=== PATIENT | female | born 1960 | race Two or more races ===

== ENCOUNTER 2019-07-04 16:19 | Emergency (ER) | payer OTHER ==
[~2019-07-04] VITALS: Ht 160 cm; Wt 72.1 kg
[2019-07-04 16:49] VITALS: BP 121/66
== END 2019-07-04 17:36 | disposition home or self-care (01) ==
LOC: ER 16:19
DX: L23.9 Allergic contact dermatitis, unspecified cause (principal); Z88.8 Allergy status to other drugs, medicaments and biological substances

== ENCOUNTER 2022-06-14 13:26 | Inpatient (IN) | payer MEDICAID, OTHER ==
[~2022-06-14] VITALS: Ht 160 cm; Wt 71.8 kg
[2022-06-14] MEDS ORDERED: ONDANSETRON HCL 4 MG/2 ML VIAL IV ONE (14:00)
[2022-06-14] MEDS ORDERED: MORPHINE SULFATE 4 MG/ML SYR/VIAL IV ONE (14:00)
[2022-06-14 14:18] LABS: Basophils # (auto) 0 10 ^3/uL (0-0.2); Eosinophils # (auto) 0 10 ^3/uL (0-0.8); Eosinophils % (auto) 1.2 % (0.0-7.0); Hematocrit 43.3 % (36.0-46.0); Lymphocytes # (auto) 1.2 10 ^3/uL (0.4-5.4); Lymphocytes % (auto) 28.4 % (10.0-50.0); Mean Corpuscular Hgb Conc. 32.4 g/dL (32.0-36.0); Mean Corpuscular Volume 83.2 fL (80.0-100.0); Monocytes # (auto) 0.3 10 ^3/uL (0-1.3); Monocytes % (auto) 8.2 % (0.0-12.0); Neutrophils # (auto) 2.5 10 ^3/uL (1.6-8.6); Neutrophils % (auto) 61.2 % (37.0-80.0); Nucleated Red Blood Cells % 0.3 %; Red Cell Distribution Width 13.9 % (11.8-14.3); White Blood Cell 4.1 10^3/uL (4.4-10.8)
[2022-06-14 14:37] LABS: Albumin 3.4 g/dL (3.4-5.0); Calcium 9.5 mg/dL (8.5-10.1); Magnesium 1.9 mg/dL (1.6-2.6); Potassium 3.5 mmol/L (3.5-5.1)
[2022-06-14 14:40] LABS: BUN/Creatinine Ratio 24.5; Bilirubin, Total 0.4 mg/dL (0.2-1.0); Total Protein 7.6 g/dL (6.4-8.2)
[2022-06-14 14:44] LABS: Urine Bacteria FEW /hpf (None Seen); Urine Blood Negative /uL (Negative); Urine Mucus FEW (None Seen); Urine Specific Gravity 1.034 (1.001-1.035); Urine WBC 2 /hpf (0 - 5)
[2022-06-14] MEDS ORDERED: ACETAMINOPHEN 325 MG TAB PO PRN (21:00)
[2022-06-14] MEDS ORDERED: NITROGLYCERIN 0.4 MG SL TAB SL PRN (21:00)
[2022-06-14] MEDS ORDERED: DEXTROSE (50%) 50ML SYRG IV PRN (21:00)
[2022-06-14] MEDS ORDERED: TEMAZEPAM 15 MG CAP PO PRN (21:00)
[2022-06-14] MEDS ORDERED: ONDANSETRON HCL 4 MG/2 ML VIAL IV PRN (21:00)
[2022-06-14] MEDS: ACCU-CHEK COMFORT CURVE STRIP VI SCH (22:30)
[2022-06-14] MEDS: InsuLIN REG 1unit/0.01ml Soln (100units/ml) SC SCH (22:35)
[2022-06-15] MEDS: HYDROcodone-ACET 5/325MG TAB PO PRN ×3 (00:12→14:46)
[2022-06-15] MEDS ORDERED: IOHEXOL 350 MG/ML 100ML IJ ONE (03:11)
[2022-06-15 06:01] LABS: Basophils # (auto) 0 10 ^3/uL (0-0.2); Basophils % (auto) 0.8 % (0.0-2.0); Eosinophils # (auto) 0.1 10 ^3/uL (0-0.8); Eosinophils % (auto) 1.9 % (0.0-7.0); Hematocrit 39.4 % (36.0-46.0); Hemoglobin 12.8 g/dL (12.2-16.2); Lymphocytes # (auto) 1.1 10 ^3/uL (0.4-5.4); Lymphocytes % (auto) 28.9 % (10.0-50.0); Mean Corpuscular Hemoglobin 27.1 pg (28.0-32.0); Mean Corpuscular Hgb Conc. 32.4 g/dL (32.0-36.0); Mean Corpuscular Volume 83.7 fL (80.0-100.0); Monocytes # (auto) 0.4 10 ^3/uL (0-1.3); Monocytes % (auto) 11.3 % (0.0-12.0); Neutrophils # (auto) 2.1 10 ^3/uL (1.6-8.6); Neutrophils % (auto) 57.1 % (37.0-80.0); Nucleated Red Blood Cells % 0.1 %; Red Blood Cells 4.71 10^6/uL (4.0-5.20); White Blood Cell 3.7 10^3/uL (4.4-10.8)
[2022-06-15 06:18] LABS: Anion Gap 8 (5-15); Blood Urea Nitrogen 13 mg/dL (7-18); Calcium 8.7 mg/dL (8.5-10.1); Carbon Dioxide 27 mmol/L (21-32); Chloride 103 mmol/L (98-107); Glucose 294 mg/dL (74-106); Potassium 3.5 mmol/L (3.5-5.1); Sodium 138 mmol/L (136-145)
[2022-06-15 06:21] LABS: GFR African American 154 mL/min; GFR Non-African American 127 mL/min
[2022-06-15 06:25] LABS: Alanine Aminotransferase 36 U/L (13-56); Alkaline Phosphatase 87 U/L (45-117); Aspartate Aminotransferase 30 U/L (15-37); Bilirubin, Total 0.3 mg/dL (0.2-1.0); Total Protein 6.3 g/dL (6.4-8.2)
[2022-06-15] MEDS: ACCU-CHEK COMFORT CURVE STRIP VI SCH ×4 (07:03→22:07)
[2022-06-15] MEDS: InsuLIN REG 1unit/0.01ml Soln (100units/ml) SC SCH ×4 (07:10→22:05)
[2022-06-15 09:51] VITALS: BP 99/65
[2022-06-15 09:58] VITALS: BP 98/58
[2022-06-15] MEDS ORDERED: ENOXAPARIN SOD 40 MG/0.4 ML SYRINGE SC SCH (10:00)
[2022-06-15] MEDS ORDERED: PANT40TA2 PO (10:57)
[2022-06-15] MEDS: PANTOPRAZOLE 40 MG TAB PO SCH (11:09)
[2022-06-15 13:00] VITALS: BP 108/59
[2022-06-15] MEDS ORDERED: oxyCODONE ER 10 MG TAB PO ONE (15:00)
[2022-06-15] MEDS ORDERED: POTASSIUM CHL 20 Meq TABLET PO ONE (16:00)
[2022-06-15 16:50] LABS: Cholesterol 173 mg/dL (< 200)
[2022-06-15 16:53] LABS: HDL Cholesterol 31 mg/dL (40-59); LDL Cholesterol 122 mg/dL (< 100); Triglycerides 170 mg/dL (< 150)
[2022-06-15 17:00] VITALS: BP 112/65
[2022-06-15 17:03] LABS: Thyroid Stimulating Hormone 4.89 uIU/mL (0.358-3.74)
[2022-06-15] MEDS ORDERED: ERGOCALCIFEROL 50,000 UNIT(1.25MG) CAP PO SCH (20:45)
[2022-06-15 22:00] VITALS: BP 97/62
[2022-06-15] MEDS ORDERED: INSULIN LANTUS (GLARGINE) 1 /0.01ml (100units/ml) SC SCH (22:00)
[2022-06-16] VITALS (24 sets, daily range): BP systolic 98–134; BP diastolic 46–93
[2022-06-16 06:32] LABS: INR 0.95 (0.9-1.15); Partial Thromboplastin Time 27.3 sec (24.6-33.4)
[2022-06-16] MEDS: InsuLIN REG 1unit/0.01ml Soln (100units/ml) SC SCH ×4 (06:47→22:08)
[2022-06-16] MEDS: ACCU-CHEK COMFORT CURVE STRIP VI SCH ×4 (06:49→22:10)
[2022-06-16] MEDS: PANTOPRAZOLE 40 MG TAB PO SCH (08:29)
[2022-06-16] MEDS: INSULIN LANTUS (GLARGINE) 1 /0.01ml (100units/ml) SC SCH ×2 (08:29→22:20)
[2022-06-16] MEDS ORDERED: LIDOCAINE 2%HCL (LOCAL ANESTH.) INJ 10ml MDV ONE (09:41)
[2022-06-16] MEDS ORDERED: MIDAZOLAM HCL 2MG/2ML 2ml VIAL (1mg/ml) IV ONE (10:00)
[2022-06-16] MEDS ORDERED: fentaNYL CITRATE 100 MCG/2 ML VL IV ONE (10:00)
[2022-06-16] MEDS: HYDROcodone-ACET 5/325MG TAB PO PRN (18:21)
[2022-06-17] VITALS (7 sets, daily range): BP systolic 102–132; BP diastolic 56–78
[2022-06-17] MEDS: HYDROcodone-ACET 5/325MG TAB PO PRN ×2 (04:29→21:13)
[2022-06-17 05:27] LABS: Basophils # (auto) 0 10 ^3/uL (0-0.2); Basophils % (auto) 0.8 % (0.0-2.0); Eosinophils # (auto) 0.1 10 ^3/uL (0-0.8); Eosinophils % (auto) 1.4 % (0.0-7.0); Hemoglobin 13.3 g/dL (12.2-16.2); Lymphocytes # (auto) 1.1 10 ^3/uL (0.4-5.4); Lymphocytes % (auto) 27.2 % (10.0-50.0); Mean Corpuscular Hgb Conc. 32.5 g/dL (32.0-36.0); Monocytes # (auto) 0.4 10 ^3/uL (0-1.3); Monocytes % (auto) 10.8 % (0.0-12.0); Neutrophils # (auto) 2.4 10 ^3/uL (1.6-8.6); Neutrophils % (auto) 59.8 % (37.0-80.0); Red Blood Cells 4.93 10^6/uL (4.0-5.20); White Blood Cell 4.1 10^3/uL (4.4-10.8)
[2022-06-17 05:45] LABS: BUN/Creatinine Ratio 35.7; Calcium 9.1 mg/dL (8.5-10.1); Potassium 3.5 mmol/L (3.5-5.1)
[2022-06-17] MEDS: InsuLIN REG 1unit/0.01ml Soln (100units/ml) SC SCH ×4 (06:35→22:14)
[2022-06-17] MEDS: ACCU-CHEK COMFORT CURVE STRIP VI SCH ×4 (06:36→22:24)
[2022-06-17] MEDS: PANTOPRAZOLE 40 MG TAB PO SCH (07:49)
[2022-06-17] MEDS: INSULIN LANTUS (GLARGINE) 1 /0.01ml (100units/ml) SC SCH ×2 (07:50→22:14)
[2022-06-17] MEDS: IPRATROPIUM BROM 0.5 MG/2.5ML INH SOL NEB PRN ×2 (10:20→21:02)
[2022-06-17] MEDS: ALBUTEROL SULF 2.5 MG/0.5ML(0.5%) NEB SOLN NEB PRN ×2 (10:20→21:02)
[2022-06-18 05:00] VITALS: BP 109/71
[2022-06-18] MEDS: ACCU-CHEK COMFORT CURVE STRIP VI SCH ×4 (06:38→21:26)
[2022-06-18] MEDS: InsuLIN REG 1unit/0.01ml Soln (100units/ml) SC SCH ×4 (06:41→21:26)
[2022-06-18 09:00] VITALS: BP 124/79
[2022-06-18] MEDS: INSULIN LANTUS (GLARGINE) 1 /0.01ml (100units/ml) SC SCH ×2 (10:34→21:25)
[2022-06-18 13:00] VITALS: BP 120/70
[2022-06-18] MEDS ORDERED: ERGO1CAP23 PO (14:48)
[2022-06-18] MEDS ORDERED: INSLANTI SC (14:48)
[2022-06-18] MEDS ORDERED: ALB5IS IN (14:48)
[2022-06-18] MEDS ORDERED: BLOO1KIT60 XX (14:48)
[2022-06-18] MEDS ORDERED: GLIP10TA9 PO (14:51)
[2022-06-18] MEDS: HYDROcodone-ACET 5/325MG TAB PO PRN ×2 (15:16→23:03)
[2022-06-18 16:55] VITALS: BP 127/75
[2022-06-18] MEDS ORDERED: DOCUSATE SOD 100 MG CAP PO PRN (17:30)
[2022-06-18] MEDS: ALBUTEROL SULF 2.5 MG/0.5ML(0.5%) NEB SOLN NEB PRN (18:07)
[2022-06-18] MEDS: IPRATROPIUM BROM 0.5 MG/2.5ML INH SOL NEB PRN (18:07)
[2022-06-18 22:00] VITALS: BP 128/73
[2022-06-19] MEDS ORDERED: PANTOPRAZOLE 40 MG TAB PO SCH (00:15)
[2022-06-19 05:00] VITALS: BP 112/61
[2022-06-19] MEDS: ACCU-CHEK COMFORT CURVE STRIP VI SCH ×4 (06:27→21:28)
[2022-06-19] MEDS: InsuLIN REG 1unit/0.01ml Soln (100units/ml) SC SCH ×4 (06:28→21:32)
[2022-06-19] MEDS: INSULIN LANTUS (GLARGINE) 1 /0.01ml (100units/ml) SC SCH ×2 (08:00→21:32)
[2022-06-19] MEDS: PANTOPRAZOLE 40 MG TAB PO SCH (08:47)
[2022-06-19 09:00] VITALS: BP 106/64
[2022-06-19] MEDS: HYDROcodone-ACET 5/325MG TAB PO PRN ×2 (10:10→18:15)
[2022-06-19] MEDS: IPRATROPIUM BROM 0.5 MG/2.5ML INH SOL NEB PRN (10:21)
[2022-06-19] MEDS: ALBUTEROL SULF 2.5 MG/0.5ML(0.5%) NEB SOLN NEB PRN (10:21)
[2022-06-19 13:00] VITALS: BP 119/55
[2022-06-19 17:00] VITALS: BP 125/92
[2022-06-19] MEDS: MORPHINE SULFATE INJ 2 MG/ml SYRG IV PRN (17:06)
[2022-06-19 22:00] VITALS: BP 117/69
[2022-06-20] VITALS (7 sets, daily range): BP systolic 98–124; BP diastolic 51–78
[2022-06-20] MEDS: MORPHINE SULFATE INJ 2 MG/ml SYRG IV PRN ×3 (01:24→13:55)
[2022-06-20] MEDS: InsuLIN REG 1unit/0.01ml Soln (100units/ml) SC SCH ×3 (06:51→17:12)
[2022-06-20] MEDS: INSULIN LANTUS (GLARGINE) 1 /0.01ml (100units/ml) SC SCH (08:00)
[2022-06-20] MEDS: PANTOPRAZOLE 40 MG TAB PO SCH (09:38)
[2022-06-20] MEDS: ACCU-CHEK COMFORT CURVE STRIP VI SCH ×2 (12:37→17:11)
[2022-06-20] MEDS: ALBUTEROL SULF 2.5 MG/0.5ML(0.5%) NEB SOLN NEB PRN (14:04)
[2022-06-20] MEDS: IPRATROPIUM BROM 0.5 MG/2.5ML INH SOL NEB PRN (14:04)
== END 2022-06-20 17:20 | disposition home or self-care (01) | DRG 136 ==
LOC: ER 13:26 → TELE 20:50 → TELE-EAST 06-15 09:17
PROVIDERS: ADMIT Nurse Practitioner; ATTEND Internal Medicine
PROC: 0BBD3ZX Excision of Right Middle Lung Lobe, Percutaneous Approach, Diagnostic (ICD-10-PCS; principal; 2022-06-16)
PROC: 0W9930Z Drainage of Right Pleural Cavity with Drainage Device, Percutaneous Approach (ICD-10-PCS; 2022-06-16)
DX: C78.00 Secondary malignant neoplasm of unspecified lung (principal); J93.9 Pneumothorax, unspecified; E11.9 Type 2 diabetes mellitus without complications; K80.20 Calculus of gallbladder without cholecystitis without obstruction; Z20.822 Contact with and (suspected) exposure to COVID-19; Z88.8 Allergy status to other drugs, medicaments and biological substances; Z90.710 Acquired absence of both cervix and uterus; Z85.42 Personal history of malignant neoplasm of other parts of uterus; Z92.21 Personal history of antineoplastic chemotherapy; Z92.3 Personal history of irradiation
CPT/HCPCS: 10005; 36415; 71045; 71046; 71250; 71275; 74176; 77012; 80048; 80053; 80061; 81001; 82150; 82306; 82962; 83036; 83615; 83690; 83735; 83880; 84439; 84443; 84484; 85025; 85379; 85610; 85730; 86304; 93005; 93306; 94640; 96374; 96375; A4223; C1729; G0378; J1815; J2001; J2250; J2405

== ENCOUNTER 2022-07-04 15:37 | Inpatient (IN) | payer MEDICAID ==
[~2022-07-04] VITALS: Ht 160 cm; Wt 65.9 kg
[~2022-07-04 15:37] MED LIST: ALB5IS IN; BLOO1KIT60 XX; ERGO1CAP23 PO; GLIP10TA9 PO; INSLANTI SC; PANT40TA2 PO
[2022-07-04] MEDS ORDERED: IOHEXOL 350 MG/ML 100ML IJ ONE ×2 (16:23→20:57)
[2022-07-04 16:53] LABS: Basophils # (auto) 0.1 10 ^3/uL (0-0.2); Basophils % (auto) 1.1 % (0.0-2.0); Eosinophils # (auto) 0.1 10 ^3/uL (0-0.8); Hematocrit 42.9 % (36.0-46.0); Hemoglobin 13.4 g/dL (12.2-16.2); Lymphocytes # (auto) 1.1 10 ^3/uL (0.4-5.4); Lymphocytes % (auto) 22.3 % (10.0-50.0); Mean Corpuscular Hemoglobin 26.5 pg (28.0-32.0); Mean Corpuscular Hgb Conc. 31.3 g/dL (32.0-36.0); Mean Corpuscular Volume 84.5 fL (80.0-100.0); Monocytes # (auto) 0.4 10 ^3/uL (0-1.3); Monocytes % (auto) 7.8 % (0.0-12.0); Neutrophils # (auto) 3.2 10 ^3/uL (1.6-8.6); Neutrophils % (auto) 65.8 % (37.0-80.0); Nucleated Red Blood Cells % 0.1 %; Red Blood Cells 5.08 10^6/uL (4.0-5.20); Red Cell Distribution Width 14.1 % (11.8-14.3); White Blood Cell 4.8 10^3/uL (4.4-10.8)
[2022-07-04 17:08] LABS: Albumin 3.4 g/dL (3.4-5.0); Calcium 9.2 mg/dL (8.5-10.1); Potassium 3.9 mmol/L (3.5-5.1)
[2022-07-04 17:11] LABS: BUN/Creatinine Ratio 20.3
[2022-07-04 17:12] LABS: Bilirubin, Total 0.2 mg/dL (0.2-1.0); Total Protein 7.3 g/dL (6.4-8.2)
[2022-07-04 21:18] LABS: Urine Bacteria FEW /hpf (None Seen); Urine Blood Negative /uL (Negative); Urine Mucus FEW (None Seen); Urine Specific Gravity 1.023 (1.001-1.035); Urine WBC 7 /hpf (0 - 5)
[2022-07-05] MEDS ORDERED: ONDANSETRON HCL 4 MG/2 ML VIAL IV PRN (01:00)
[2022-07-05] MEDS ORDERED: ALBUTEROL SULF 2.5 MG/0.5ML(0.5%) NEB SOLN NEB PRN (01:00)
[2022-07-05] MEDS ORDERED: HYDROcodone-ACET 5/325MG TAB PO ONE (01:00)
[2022-07-05] MEDS ORDERED: TEMAZEPAM 15 MG CAP PO PRN (01:00)
[2022-07-05] MEDS ORDERED: MORPHINE SULFATE INJ 2 MG/ml SYRG IV PRN (01:00)
[2022-07-05] MEDS ORDERED: NITROGLYCERIN 0.4 MG SL TAB SL PRN (01:00)
[2022-07-05] MEDS ORDERED: DEXTROSE (50%) 50ML SYRG IV PRN (01:00)
[2022-07-05] MEDS ORDERED: ACETAMINOPHEN 325 MG TAB PO PRN (01:00)
[2022-07-05 03:10] VITALS: BP 126/76
[2022-07-05] MEDS: HYDROcodone-ACET 5/325MG TAB PO PRN ×2 (05:48→13:36)
[2022-07-05] MEDS: ACCU-CHEK COMFORT CURVE STRIP VI SCH ×3 (05:58→18:00)
[2022-07-05] MEDS: InsuLIN REG 1unit/0.01ml Soln (100units/ml) SC SCH ×3 (05:59→18:00)
[2022-07-05] MEDS ORDERED: PANTOPRAZOLE 40 MG TAB PO SCH (10:00)
[2022-07-05] MEDS ORDERED: ENOXAPARIN SOD 40 MG/0.4 ML SYRINGE SC SCH (10:00)
[2022-07-05 13:00] VITALS: BP 123/68
[2022-07-05 17:00] VITALS: BP 108/59
== END 2022-07-05 18:53 | disposition home or self-care (01) | DRG 203 ==
LOC: ER 15:37 → TELE 07-05 00:46 → TELE-WESTW 07-05 11:39
PROVIDERS: ADMIT Nurse Practitioner; ATTEND Internal Medicine
DX: R07.89 Other chest pain (principal); E11.9 Type 2 diabetes mellitus without complications; Z20.822 Contact with and (suspected) exposure to COVID-19; J44.9 Chronic obstructive pulmonary disease, unspecified; I10 Essential (primary) hypertension; R63.4 Abnormal weight loss; Z85.118 Personal history of other malignant neoplasm of bronchus and lung; Z90.5 Acquired absence of kidney; Z85.42 Personal history of malignant neoplasm of other parts of uterus; Z88.8 Allergy status to other drugs, medicaments and biological substances; Z79.4 Long term (current) use of insulin; Z68.25 Body mass index [BMI] 25.0-25.9, adult
CPT/HCPCS: 36415; 71275; 80053; 81001; 82962; 84443; 84484; 85025; 93005; 96372; G0378; J1815

== ENCOUNTER → 2022-08-19 | Outpatient (CLI) | payer MEDICAID | END | disposition home or self-care (01) | LOC: LAB 13:47 | PROVIDERS: ATTEND Nurse Practitioner Family | DX: Z20.822 Contact with and (suspected) exposure to COVID-19 (principal) | CPT/HCPCS: 36415 ==

== ENCOUNTER → 2022-08-20 | Outpatient (CLI) | payer MEDICAID ==
[~2022-08-20] MED LIST changes: +ALBUTEROL SULF 2.5 MG/0.5ML(0.5%) NEB SOLN ONE
== END | disposition home or self-care (01) ==
LOC: RT 08:43
PROVIDERS: ATTEND Internal Medicine Pulmonary Disease
DX: R06.02 Shortness of breath (principal); R06.00 Dyspnea, unspecified
CPT/HCPCS: 82962; 94060; 94727; 94729

== ENCOUNTER 2022-12-08 16:02 | Emergency (ER) | payer MEDICAID, MEDICARE ==
[~2022-12-08] VITALS: Ht 160 cm; Wt 64.9 kg
[~2022-12-08 16:02] MED LIST changes: -ALBUTEROL SULF 2.5 MG/0.5ML(0.5%) NEB SOLN ONE
[2022-12-08 17:07] LABS: Basophils # (auto) 0 10 ^3/uL (0-0.2); Basophils % (auto) 0.8 % (0.0-2.0); Eosinophils # (auto) 0 10 ^3/uL (0-0.8); Eosinophils % (auto) 0.7 % (0.0-7.0); Hematocrit 36.9 % (36.0-46.0); Hemoglobin 12.3 g/dL (12.2-16.2); Lymphocytes # (auto) 1.2 10 ^3/uL (0.4-5.4); Lymphocytes % (auto) 36.9 % (10.0-50.0); Mean Corpuscular Hemoglobin 29.5 pg (28.0-32.0); Mean Corpuscular Hgb Conc. 33.4 g/dL (32.0-36.0); Mean Corpuscular Volume 88.2 fL (80.0-100.0); Monocytes # (auto) 0.4 10 ^3/uL (0-1.3); Monocytes % (auto) 13.3 % (0.0-12.0); Neutrophils # (auto) 1.5 10 ^3/uL (1.6-8.6); Neutrophils % (auto) 48.3 % (37.0-80.0); Nucleated Red Blood Cells % 0.2 %; Red Blood Cells 4.18 10^6/uL (4.0-5.20); Red Cell Distribution Width 15.8 % (11.8-14.3); White Blood Cell 3.1 10^3/uL (4.4-10.8)
[2022-12-08 17:26] LABS: Albumin 3.8 g/dL (3.4-5.0); BUN/Creatinine Ratio 17.7; Calcium 9.5 mg/dL (8.5-10.1)
[2022-12-08 17:33] LABS: Bilirubin, Total 0.3 mg/dL (0.2-1.0); Total Protein 7.6 g/dL (6.4-8.2)
[2022-12-08 18:05] LABS: Urine Bacteria NONE SEEN /hpf (None Seen); Urine Blood Negative /uL (Negative); Urine Mucus MANY (None Seen); Urine Specific Gravity 1.031 (1.001-1.035); Urine WBC 27 /hpf (0 - 5)
[2022-12-08 20:04] VITALS: BP 130/76
== END 2022-12-08 20:05 | disposition home or self-care (01) ==
LOC: ER 16:02
DX: R19.7 Diarrhea, unspecified (principal); E11.9 Type 2 diabetes mellitus without complications; Z88.1 Allergy status to other antibiotic agents; Z79.899 Other long term (current) drug therapy; Z98.51 Tubal ligation status
CPT/HCPCS: 36415; 80053; 81001; 85025

== ENCOUNTER 2023-03-15 10:59 | Emergency (ER) | payer MEDICAID ==
[~2023-03-15] VITALS: Ht 160 cm; Wt 68.0 kg
[2023-03-15 12:15] LABS: Urine Bacteria NONE SEEN /hpf (None Seen); Urine Blood Negative /uL (Negative); Urine Hyaline Cast FEW /lpf (0 - 2); Urine Mucus FEW (None Seen); Urine Specific Gravity 1.022 (1.001-1.035); Urine WBC 3 /hpf (0 - 5)
[2023-03-15 12:20] LABS: Basophils # (auto) 0 10 ^3/uL (0-0.2); Basophils % (auto) 0.3 % (0.0-2.0); Eosinophils # (auto) 0 10 ^3/uL (0-0.8); Eosinophils % (auto) 0.9 % (0.0-7.0); Hematocrit 39.9 % (36.0-46.0); Hemoglobin 13.3 g/dL (12.2-16.2); Lymphocytes # (auto) 1.5 10 ^3/uL (0.4-5.4); Lymphocytes % (auto) 27.9 % (10.0-50.0); Mean Corpuscular Hemoglobin 28.8 pg (28.0-32.0); Mean Corpuscular Hgb Conc. 33.3 g/dL (32.0-36.0); Mean Corpuscular Volume 86.5 fL (80.0-100.0); Monocytes # (auto) 0.4 10 ^3/uL (0-1.3); Neutrophils # (auto) 3.3 10 ^3/uL (1.6-8.6); Neutrophils % (auto) 63.9 % (37.0-80.0); Nucleated Red Blood Cells % 0.1 %; Red Blood Cells 4.61 10^6/uL (4.0-5.20); Red Cell Distribution Width 14.9 % (11.8-14.3); White Blood Cell 5.2 10^3/uL (4.4-10.8)
[2023-03-15 12:37] LABS: Albumin 3.6 g/dL (3.4-5.0); Calcium 9.7 mg/dL (8.5-10.1); INR 0.92 (0.9-1.15); Partial Thromboplastin Time 27.3 sec (24.6-33.4); Potassium 4.6 mmol/L (3.5-5.1)
[2023-03-15 12:53] LABS: Bilirubin, Total 0.3 mg/dL (0.2-1.0); Total Protein 7.4 g/dL (6.4-8.2)
[2023-03-15] MEDS ORDERED: IOHEXOL 350 MG/ML 100ML IJ ONE (14:28)
[2023-03-15] MEDS ORDERED: NITR-87 PO (18:01)
[2023-03-15 18:04] VITALS: BP 96/66
== END 2023-03-15 18:05 | disposition home or self-care (01) ==
LOC: ER 10:59
DX: N39.0 Urinary tract infection, site not specified (principal); R91.8 Other nonspecific abnormal finding of lung field; E11.9 Type 2 diabetes mellitus without complications; R06.02 Shortness of breath; Z98.51 Tubal ligation status; Z79.01 Long term (current) use of anticoagulants
CPT/HCPCS: 36415; 71045; 71275; 80053; 81001; 83880; 84484; 85025; 85379; 85610; 85730; 99285; Q9967

== ENCOUNTER 2023-05-29 22:46 | Inpatient (IN) | payer MEDICAID ==
[~2023-05-29] VITALS: Ht 160 cm; Wt 71.5 kg
[~2023-05-29 22:46] MED LIST changes: +NITR-87 PO
[2023-05-29 23:03] LABS: Basophils # (auto) 0.1 10 ^3/uL (0-0.2); Basophils % (auto) 2.9 % (0.0-2.0); Eosinophils # (auto) 0.1 10 ^3/uL (0-0.8); Eosinophils % (auto) 1.9 % (0.0-7.0); Hematocrit 39.2 % (36.0-46.0); Hemoglobin 12.8 g/dL (12.2-16.2); Lymphocytes # (auto) 0.9 10 ^3/uL (0.4-5.4); Lymphocytes % (auto) 19.5 % (10.0-50.0); Mean Corpuscular Hemoglobin 28.3 pg (28.0-32.0); Mean Corpuscular Hgb Conc. 32.7 g/dL (32.0-36.0); Mean Corpuscular Volume 86.5 fL (80.0-100.0); Monocytes # (auto) 0.3 10 ^3/uL (0-1.3); Monocytes % (auto) 5.6 % (0.0-12.0); Neutrophils # (auto) 3.4 10 ^3/uL (1.6-8.6); Neutrophils % (auto) 70.1 % (37.0-80.0); Nucleated Red Blood Cells % 0.2 %; Red Blood Cells 4.53 10^6/uL (4.0-5.20); Red Cell Distribution Width 14.6 % (11.8-14.3); White Blood Cell 4.8 10^3/uL (4.4-10.8)
[2023-05-29 23:21] LABS: Partial Thromboplastin Time 27.1 SEC (24.5-34.5)
[2023-05-29 23:24] LABS: Magnesium 1.8 mg/dL (1.6-2.6); Potassium 3.4 mmol/L (3.5-5.1)
[2023-05-29 23:27] LABS: Bilirubin, Total 0.2 mg/dL (0.2-1.0)
[2023-05-30] VITALS (9 sets, daily range): BP systolic 115–148; BP diastolic 31–72
[2023-05-30] MEDS ORDERED: HEPARIN DRIP/D5W 100UNITS/ML 250 ML IV SCH (00:45)
[2023-05-30] MEDS ORDERED: HEPARIN SODIUM (PORCINE) 5000 UNITS/ML 1ML VIAL IV ONE (00:45)
[2023-05-30 01:22] LABS: INR 0.98 (0.9-1.15); Partial Thromboplastin Time 27.2 SEC (24.5-34.5)
[2023-05-30] MEDS ORDERED: MORPHINE SULFATE INJ 2 MG/ml SYRG IV PRN (03:00)
[2023-05-30] MEDS ORDERED: NITROGLYCERIN 0.4 MG SL TAB SL PRN (03:00)
[2023-05-30] MEDS ORDERED: DEXTROSE (50%) 50ML SYRG IV PRN (03:00)
[2023-05-30] MEDS ORDERED: SOD CHL 0.9%/ KCL 20MEQ 1,000 ML IV ONE (03:00)
[2023-05-30] MEDS ORDERED: ACETAMINOPHEN 325 MG TAB PO PRN (03:00)
[2023-05-30] MEDS ORDERED: ONDANSETRON HCL 4 MG/2 ML VIAL IV PRN (03:00)
[2023-05-30] MEDS ORDERED: ATORVASTATIN 20 MG TAB PO ONE (03:00)
[2023-05-30 06:19] LABS: INR 1.02 (0.9-1.15)
[2023-05-30 06:24] LABS: Partial Thromboplastin Time 81.8 SEC (24.5-34.5)
[2023-05-30] MEDS: InsuLIN REG 1unit/0.01ml Soln (100units/ml) SC SCH ×3 (06:49→18:25)
[2023-05-30] MEDS: ACCU-CHEK COMFORT CURVE STRIP VI SCH ×2 (06:49→18:25)
[2023-05-30] MEDS ORDERED: MAGNESIUM SULFATE 1GM/100ML 100 ML IV ONE (10:00)
[2023-05-30] MEDS ORDERED: ASPirin 81 mg TAB PO SCH (10:00)
[2023-05-30] MEDS ORDERED: POTASSIUM CHL 20 Meq TABLET PO ONE (10:00)
[2023-05-30 13:11] LABS: INR 0.98 (0.9-1.15)
[2023-05-30 13:23] LABS: Cholesterol 203 mg/dL (< 200)
[2023-05-30 13:26] LABS: HDL Cholesterol 47 mg/dL (40-59); LDL Cholesterol 133 mg/dL (< 100); Triglycerides 82 mg/dL (< 150)
[2023-05-30] MEDS ORDERED: fentaNYL CITRATE 100 MCG/2 ML VL ONE (13:38)
[2023-05-30] MEDS ORDERED: VERAPAMIL 2.5MG/ML INJ 2ML VIAL IV ONE (13:38)
[2023-05-30] MEDS ORDERED: ANGIOMAX 250 MG VIAL IV ONE (13:38)
[2023-05-30] MEDS ORDERED: MIDAZOLAM HCL 2MG/2ML 2ml VIAL (1mg/ml) ONE (13:39)
[2023-05-30] MEDS ORDERED: SODIUM CHL 0.9% 50 ML ONE (13:39)
[2023-05-30] MEDS ORDERED: LIDOCAINE 2%HCL (LOCAL ANESTH.) INJ 20ML MDV ONE (13:39)
[2023-05-30] MEDS ORDERED: IODIXANOL 320MG/ML 100ML BTL IV ONE ×2 (14:00→14:36)
[2023-05-30] MEDS ORDERED: TICAGRELOR 90 MG TAB ONE (14:43)
[2023-05-30] MEDS ORDERED: LOP2C PO (18:14)
[2023-05-30 19:58] LABS: INR 1.04 (0.9-1.15); Partial Thromboplastin Time 37.9 SEC (24.5-34.5)
[2023-05-30] MEDS: HYDROcodone-ACET 5/325MG TAB PO PRN (20:39)
[2023-05-30] MEDS ORDERED: CLOPIDOGREL BISULFATE 75 MG TAB PO ONE (21:00)
[2023-05-30] MEDS: ATORVASTATIN 20 MG TAB PO SCH (22:31)
[2023-05-30] MEDS: METOPROLOL TARTRATE 25 MG TAB PO SCH (22:32)
[2023-05-31] MEDS: ACCU-CHEK COMFORT CURVE STRIP VI SCH ×5 (00:01→23:56)
[2023-05-31] MEDS: InsuLIN REG 1unit/0.01ml Soln (100units/ml) SC SCH ×5 (00:02→23:56)
[2023-05-31] MEDS: TEMAZEPAM 15 MG CAP PO PRN ×2 (00:43→23:38)
[2023-05-31 05:00] VITALS: BP 116/54
[2023-05-31 07:28] LABS: Basophils # (auto) 0 10 ^3/uL (0-0.2); Basophils % (auto) 0.5 % (0.0-2.0); Eosinophils # (auto) 0.1 10 ^3/uL (0-0.8); Eosinophils % (auto) 1.3 % (0.0-7.0); Hematocrit 38.8 % (36.0-46.0); Hemoglobin 12.7 g/dL (12.2-16.2); Lymphocytes # (auto) 1.2 10 ^3/uL (0.4-5.4); Lymphocytes % (auto) 23.1 % (10.0-50.0); Mean Corpuscular Hemoglobin 28.2 pg (28.0-32.0); Mean Corpuscular Hgb Conc. 32.7 g/dL (32.0-36.0); Mean Corpuscular Volume 86.2 fL (80.0-100.0); Monocytes # (auto) 0.5 10 ^3/uL (0-1.3); Monocytes % (auto) 8.6 % (0.0-12.0); Neutrophils # (auto) 3.5 10 ^3/uL (1.6-8.6); Neutrophils % (auto) 66.5 % (37.0-80.0); Nucleated Red Blood Cells % 0.1 %; Red Blood Cells 4.51 10^6/uL (4.0-5.20); Red Cell Distribution Width 14.8 % (11.8-14.3); White Blood Cell 5.3 10^3/uL (4.4-10.8)
[2023-05-31 07:45] LABS: Albumin 3.1 g/dL (3.4-5.0); Calcium 8.6 mg/dL (8.5-10.1); Magnesium 2.4 mg/dL (1.6-2.6); Potassium 3.8 mmol/L (3.5-5.1)
[2023-05-31 07:48] LABS: Bilirubin, Total 0.5 mg/dL (0.2-1.0); Total Protein 6.4 g/dL (6.4-8.2)
[2023-05-31] MEDS: METOPROLOL TARTRATE 25 MG TAB PO SCH ×2 (09:10→21:21)
[2023-05-31 09:22] VITALS: BP 93/68
[2023-05-31] MEDS ORDERED: METO25TA36 PO ×2 (10:05)
[2023-05-31] MEDS ORDERED: CLOP75TA28 PO ×2 (10:05)
[2023-05-31] MEDS ORDERED: ATOR-47 PO ×2 (10:05)
[2023-05-31] MEDS ORDERED: ASPI1TAB20 PO ×2 (10:05)
[2023-05-31] MEDS ORDERED: LOPERAMIDE HCL 2 MG CAP/TAB PO PRN (11:00)
[2023-05-31] MEDS: CLOPIDOGREL BISULFATE 75 MG TAB PO SCH (11:22)
[2023-05-31] MEDS: ASPirin 81 mg TAB PO SCH (11:22)
[2023-05-31] MEDS: HYDROcodone-ACET 5/325MG TAB PO PRN ×2 (11:27→21:20)
[2023-05-31 14:47] VITALS: BP 110/70
[2023-05-31 17:15] VITALS: BP 124/72
[2023-05-31] MEDS: ATORVASTATIN 20 MG TAB PO SCH (21:20)
[2023-05-31 22:00] VITALS: BP 129/64
[2023-06-01] MEDS: HYDROcodone-ACET 5/325MG TAB PO PRN ×2 (01:26→08:33)
[2023-06-01 05:00] VITALS: BP 122/56
[2023-06-01] MEDS: InsuLIN REG 1unit/0.01ml Soln (100units/ml) SC SCH ×2 (06:00→12:00)
[2023-06-01] MEDS: ACCU-CHEK COMFORT CURVE STRIP VI SCH ×2 (06:16→12:00)
[2023-06-01] MEDS: CLOPIDOGREL BISULFATE 75 MG TAB PO SCH (08:28)
[2023-06-01] MEDS: ASPirin 81 mg TAB PO SCH (08:28)
[2023-06-01] MEDS: METOPROLOL TARTRATE 25 MG TAB PO SCH (08:29)
[2023-06-01 09:00] VITALS: BP 133/63
[2023-06-01] MEDS ORDERED: ATOR-47 PO (10:36)
[2023-06-01] MEDS ORDERED: CLOP75TA28 PO (10:36)
[2023-06-01] MEDS ORDERED: METO25TA36 PO (10:36)
[2023-06-01] MEDS ORDERED: ASPI-498 PO (10:36)
[2023-06-01 10:52] VITALS: BP 133/63
== END 2023-06-01 12:20 | disposition home or self-care (01) | DRG 174 ==
LOC: ER 22:46 → EDBD 22:46 → TELE 05-30 03:01 → TELE-CENTR 05-30 17:45
PROVIDERS: ADMIT Nurse Practitioner; ATTEND Nurse Practitioner Acute Care
PROC: 027034Z Dilation of Coronary Artery, One Artery with Drug-eluting Intraluminal Device, Percutaneous Approach (ICD-10-PCS; principal; 2023-05-30)
PROC: B211YZZ Fluoroscopy of Multiple Coronary Arteries using Other Contrast (ICD-10-PCS; 2023-05-30)
PROC: 4A023N7 Measurement of Cardiac Sampling and Pressure, Left Heart, Percutaneous Approach (ICD-10-PCS; 2023-05-30)
DX: I21.4 Non-ST elevation (NSTEMI) myocardial infarction (principal); E44.0 Moderate protein-calorie malnutrition; C34.90 Malignant neoplasm of unspecified part of unspecified bronchus or lung; I25.10 Atherosclerotic heart disease of native coronary artery without angina pectoris; E87.6 Hypokalemia; E78.5 Hyperlipidemia, unspecified; E11.9 Type 2 diabetes mellitus without complications; E66.9 Obesity, unspecified; Z68.27 Body mass index [BMI] 27.0-27.9, adult; Z88.8 Allergy status to other drugs, medicaments and biological substances; Z79.02 Long term (current) use of antithrombotics/antiplatelets; Z90.710 Acquired absence of both cervix and uterus; Z98.51 Tubal ligation status
CPT/HCPCS: 36415; 71045; 80053; 80061; 82962; 83036; 83735; 83880; 84443; 84484; 85025; 85379; 85610; 85730; 92941; 93005; 93306; 93458; 96365; 96367; 96375; 99152; 99153; 99291; G0378; J1815; J2250; Q9967

== ENCOUNTER 2024-03-23 20:34 | Emergency (ER) | payer MEDICAID ==
[~2024-03-23] VITALS: Ht 160 cm; Wt 68.0 kg
[~2024-03-23 20:34] MED LIST changes: +ASPI-498 PO; +ATOR-47 PO; +CLOP75TA28 PO; +DULO20CA PO; +LOP2C PO; +METO25TA36 PO; -NITR-87 PO; -PANT40TA2 PO
[2024-03-23 21:04] LABS: Basophils # (auto) 0 10 ^3/uL (0-0.2); Basophils % (auto) 0.5 % (0.0-2.0); Eosinophils # (auto) 0.1 10 ^3/uL (0-0.8); Eosinophils % (auto) 0.9 % (0.0-7.0); Hematocrit 41.9 % (36.0-46.0); Hemoglobin 13.6 g/dL (12.2-16.2); Lymphocytes # (auto) 1.7 10 ^3/uL (0.4-5.4); Lymphocytes % (auto) 26.2 % (10.0-50.0); Mean Corpuscular Hemoglobin 28.1 pg (28.0-32.0); Mean Corpuscular Hgb Conc. 32.4 g/dL (32.0-36.0); Mean Corpuscular Volume 86.7 fL (80.0-100.0); Monocytes # (auto) 0.6 10 ^3/uL (0-1.3); Monocytes % (auto) 8.5 % (0.0-12.0); Neutrophils # (auto) 4.2 10 ^3/uL (1.6-8.6); Neutrophils % (auto) 63.9 % (37.0-80.0); Nucleated Red Blood Cells % 0.1 %; Red Blood Cells 4.84 10^6/uL (4.0-5.20); Red Cell Distribution Width 14.4 % (11.8-14.3); White Blood Cell 6.6 10^3/uL (4.4-10.8)
[2024-03-23 21:21] LABS: Alanine Aminotransferase 12 U/L (7-40); Albumin 4.5 g/dL (3.2-4.8); Alkaline Phosphatase 105 U/L (46-116); Anion Gap 7 (5-15); Aspartate Aminotransferase 19 U/L (13-40); Bilirubin, Total 0.3 mg/dL (0.2-1.0); Blood Urea Nitrogen 14 mg/dL (9-23); Calcium 10.3 mg/dL (8.5-10.1); Carbon Dioxide 26 mmol/L (20-30); Chloride 106 mmol/L (98-107); Glucose 172 mg/dL (74-106); Potassium 4.1 mmol/L (3.5-5.1); Sodium 139 mmol/L (136-145)
[2024-03-23 21:22] LABS: Total Protein 7.6 g/dL (5.7-8.2)
[2024-03-24 01:56] VITALS: BP 117/68; RESP 16; TEMP 98.5
[2024-03-24 02:27] VITALS: PULSE 103
[2024-03-24] MEDS ORDERED: AZIT500T66 PO (02:27)
[2024-03-24] MEDS ORDERED: KETOROLAC TROMETH 30 MG/ML 1ML VIAL IM ONE (02:30)
[2024-03-24 02:40] VITALS: O2SAT 95
[2024-03-24] MEDS: HYDROcodone-ACET 5/325MG TAB PO ONE (02:49)
== END 2024-03-24 03:03 | disposition home or self-care (01) ==
LOC: ER 20:34
DX: J18.9 Pneumonia, unspecified organism (principal); R51.9 Headache, unspecified; E11.9 Type 2 diabetes mellitus without complications; I25.10 Atherosclerotic heart disease of native coronary artery without angina pectoris; I25.2 Old myocardial infarction; E78.5 Hyperlipidemia, unspecified; F15.90 Other stimulant use, unspecified, uncomplicated; Z85.9 Personal history of malignant neoplasm, unspecified; Z98.890 Other specified postprocedural states; Z87.891 Personal history of nicotine dependence; Z88.8 Allergy status to other drugs, medicaments and biological substances; Z88.1 Allergy status to other antibiotic agents; Z79.899 Other long term (current) drug therapy
CPT/HCPCS: 36415; 70450; 71045; 80053; 83880; 84484; 85025; 93005

== ENCOUNTER 2024-03-30 18:08 | Emergency (ER) | payer MEDICARE, MEDICAID ==
[~2024-03-30] VITALS: Ht 160 cm; Wt 71.4 kg
[~2024-03-30 18:08] MED LIST changes: +AZIT500T66 PO
[2024-03-30 18:34] VITALS: BP 163/63; TEMP 98.1
[2024-03-30] MEDS: HYDROcodone-ACET 10/325MG TAB PO ONE (21:06)
[2024-03-30 21:57] VITALS: PULSE 96; RESP 18; O2SAT 93
== END 2024-03-30 22:00 | disposition home or self-care (01) ==
LOC: ER 18:08
DX: M25.561 Pain in right knee (principal); M54.50 Low back pain, unspecified; I25.10 Atherosclerotic heart disease of native coronary artery without angina pectoris; I25.2 Old myocardial infarction; E11.9 Type 2 diabetes mellitus without complications; E78.5 Hyperlipidemia, unspecified; Z87.891 Personal history of nicotine dependence; Z79.82 Long term (current) use of aspirin; Z79.2 Long term (current) use of antibiotics; Z79.4 Long term (current) use of insulin; Z79.899 Other long term (current) drug therapy; Z88.1 Allergy status to other antibiotic agents; Z88.8 Allergy status to other drugs, medicaments and biological substances
CPT/HCPCS: 29505; 72100; 73562

== ENCOUNTER 2024-04-02 11:37 | Inpatient (IN) | payer MEDICAID, MEDICARE ==
[~2024-04-02] VITALS: Ht 160 cm; Wt 70.6 kg
[~2024-04-02 11:37] MED LIST changes: +LEVO500T91 PO
[2024-04-02 12:41] LABS: Basophils # (auto) 0 10 ^3/uL (0-0.2); Basophils % (auto) 0.7 % (0.0-2.0); Eosinophils # (auto) 0.1 10 ^3/uL (0-0.8); Eosinophils % (auto) 1.4 % (0.0-7.0); Hematocrit 38.7 % (36.0-46.0); Hemoglobin 12.8 g/dL (12.2-16.2); Lymphocytes # (auto) 1.1 10 ^3/uL (0.4-5.4); Lymphocytes % (auto) 20.6 % (10.0-50.0); Mean Corpuscular Hemoglobin 29.2 pg (28.0-32.0); Mean Corpuscular Hgb Conc. 33.1 g/dL (32.0-36.0); Mean Corpuscular Volume 88.2 fL (80.0-100.0); Monocytes # (auto) 0.4 10 ^3/uL (0-1.3); Monocytes % (auto) 8.4 % (0.0-12.0); Neutrophils # (auto) 3.7 10 ^3/uL (1.6-8.6); Neutrophils % (auto) 68.9 % (37.0-80.0); Nucleated Red Blood Cells % 0.1 %; Red Blood Cells 4.39 10^6/uL (4.0-5.20); Red Cell Distribution Width 14.6 % (11.8-14.3); White Blood Cell 5.3 10^3/uL (4.4-10.8)
[2024-04-02 13:37] LABS: Alanine Aminotransferase 11 U/L (7-40); Albumin 4.3 g/dL (3.2-4.8); Alkaline Phosphatase 85 U/L (46-116); Anion Gap 8 (5-15); Aspartate Aminotransferase 17 U/L (13-40); BUN/Creatinine Ratio 17.8 (10.0-20.0); Bilirubin, Total 0.3 mg/dL (0.2-1.0); Blood Urea Nitrogen 13 mg/dL (9-23); Calcium 10.6 mg/dL (8.5-10.1); Carbon Dioxide 30 mmol/L (20-30); Chloride 102 mmol/L (98-107); Glucose 229 mg/dL (74-106); Potassium 3.7 mmol/L (3.5-5.1); Sodium 140 mmol/L (136-145); Total Protein 7.2 g/dL (5.7-8.2)
[2024-04-02] MEDS ORDERED: ERGOCALCIFEROL 50,000 UNIT(1.25MG) CAP PO SCH (18:00)
[2024-04-02] MEDS ORDERED: ALBUTEROL SULF 2.5 MG/0.5ML(0.5%) NEB SOLN NEB PRN (18:00)
[2024-04-02 18:18] VITALS: PULSE 86; RESP 18; O2SAT 100
[2024-04-02] MEDS: ALBUTEROL SULF 2.5 MG/0.5ML(0.5%) NEB SOLN NEB SCH (18:18)
[2024-04-02] MEDS: ALBUTEROL SULF 2.5 MG/0.5ML(0.5%) NEB SOLN NEB ONE (18:18)
[2024-04-02] MEDS: IPRATROPIUM BROM 0.5 MG/2.5ML INH SOL NEB SCH (18:18)
[2024-04-02] MEDS: IPRATROPIUM BROM 0.5 MG/2.5ML INH SOL NEB ONE (18:18)
[2024-04-02] MEDS: IPRATROPIUM BROM 0.5 MG/2.5ML INH SOL ONE (18:19)
[2024-04-02] MEDS: ALBUTEROL SULF 2.5 MG/0.5ML(0.5%) NEB SOLN ONE (18:19)
[2024-04-02 18:28] VITALS: PULSE 88; RESP 18; O2SAT 100
[2024-04-02] MEDS ORDERED: MORPHINE SULFATE INJ 2 MG/ml SYRG IV PRN (18:30)
[2024-04-02] MEDS ORDERED: DEXTROSE (50%) 50ML SYRG IV PRN (18:30)
[2024-04-02] MEDS ORDERED: NITROGLYCERIN 0.4 MG SL TAB SL PRN (18:30)
[2024-04-02 19:21] VITALS: BP 135/69; PULSE 88; RESP 18; TEMP 97.8; O2SAT 100
[2024-04-02] MEDS: SODIUM CHLORIDE 0.9% 1,000 ML IV SCH (20:31)
[2024-04-02] MEDS: HYDROcodone-ACET 5/325MG TAB PO PRN (20:32)
[2024-04-02] MEDS: ERGOCALCIFEROL 50,000 UNIT(1.25MG) CAP PO SCH (20:32)
[2024-04-02] MEDS: cefTRIAXone 1GM/50ML D5W 50 ML IV ONE (20:49)
[2024-04-02 20:54] VITALS: O2SAT 96
[2024-04-02] MEDS: AZITHROMYCIN 500MG/ 250ML 250 ML IV ONE (21:17)
[2024-04-02] MEDS: IOHEXOL 350 MG/ML 100ML IJ ONE (21:25)
[2024-04-02 22:23] VITALS: PULSE 99; RESP 20; O2SAT 99
[2024-04-02 22:33] VITALS: PULSE 98; RESP 20; O2SAT 100
[2024-04-02 22:48] LABS: COVID19 ANTIGEN SOFIA FIA NEGATIVE (NEGATIVE); Rapid Influenza A Negative (Negative); Rapid Influenza B Negative (Negative)
[2024-04-03] VITALS (24 sets, daily range): BP systolic 122–156; BP diastolic 60–93; PULSE 75–103; RESP 14–20; TEMP 97.1–98.4; O2SAT 94–100
[2024-04-03] MEDS: MORPHINE SULFATE INJ 2 MG/ml SYRG IV PRN (01:01)
[2024-04-03 05:20] LABS: Basophils # (auto) 0.1 10 ^3/uL (0-0.2); Basophils % (auto) 1.1 % (0.0-2.0); Eosinophils # (auto) 0.1 10 ^3/uL (0-0.8); Eosinophils % (auto) 1.3 % (0.0-7.0); Hematocrit 37.3 % (36.0-46.0); Hemoglobin 12.1 g/dL (12.2-16.2); Lymphocytes # (auto) 1.2 10 ^3/uL (0.4-5.4); Lymphocytes % (auto) 22.7 % (10.0-50.0); Mean Corpuscular Hemoglobin 28.3 pg (28.0-32.0); Mean Corpuscular Hgb Conc. 32.6 g/dL (32.0-36.0); Mean Corpuscular Volume 86.9 fL (80.0-100.0); Monocytes # (auto) 0.5 10 ^3/uL (0-1.3); Monocytes % (auto) 10.2 % (0.0-12.0); Neutrophils # (auto) 3.5 10 ^3/uL (1.6-8.6); Neutrophils % (auto) 64.7 % (37.0-80.0); Nucleated Red Blood Cells % 0.1 %; Red Cell Distribution Width 14.6 % (11.8-14.3); White Blood Cell 5.4 10^3/uL (4.4-10.8)
[2024-04-03 05:36] LABS: Alanine Aminotransferase 10 U/L (7-40); Alkaline Phosphatase 74 U/L (46-116); Anion Gap 8 (5-15); Aspartate Aminotransferase 17 U/L (13-40); BUN/Creatinine Ratio 17.5 (10.0-20.0); Bilirubin, Total 0.3 mg/dL (0.2-1.0); Blood Urea Nitrogen 10 mg/dL (9-23); Calcium 10.2 mg/dL (8.5-10.1); Carbon Dioxide 26 mmol/L (20-30); Chloride 107 mmol/L (98-107); Glucose 152 mg/dL (74-106); Potassium 3.6 mmol/L (3.5-5.1); Sodium 141 mmol/L (136-145); Total Protein 6.7 g/dL (5.7-8.2)
[2024-04-03] MEDS: ACCU-CHEK COMFORT CURVE STRIP VI SCH (05:58)
[2024-04-03] MEDS: InsuLIN REG 1unit/0.01ml Soln (100units/ml) SC SCH (06:00)
[2024-04-03] MEDS: cefTRIAXone 1GM/50ML D5W 50 ML IV SCH (08:45)
[2024-04-03] MEDS: CLOPIDOGREL BISULFATE 75 MG TAB PO SCH (09:35)
[2024-04-03] MEDS: ATORVASTATIN 20 MG TAB PO SCH (09:35)
[2024-04-03] MEDS: DULoxetine HCL 30 MG CAP PO SCH (09:35)
[2024-04-03] MEDS: METOPROLOL SUCCINATE XL 50 MG TAB PO SCH (09:36)
[2024-04-03] MEDS: AZITHROMYCIN 500MG/ 250ML 250 ML IV SCH (09:36)
[2024-04-03] MEDS: ENOXAPARIN SOD 40 MG/0.4 ML SYRINGE SC SCH (09:36)
[2024-04-03] MEDS: ASPirin-EC 81 mg tab PO SCH (09:36)
[2024-04-03] MEDS: KETOROLAC TROMETH 30 MG/ML 1ML VIAL IV ONE (17:18)
[2024-04-03] MEDS: ACETAMINOPHEN 325 MG TAB PO PRN (17:18)
[2024-04-03] MEDS ORDERED: OMEP-448 PO (17:34)
[2024-04-03] MEDS ORDERED: DICL1GEL59 TOP (17:34)
[2024-04-03] MEDS ORDERED: HYDR-4798 PO (17:34)
[2024-04-03 19:27] LABS: Triglycerides 130 mg/dL (< 150)
[2024-04-03 19:28] LABS: LDL Cholesterol 137 mg/dL (< 100)
[2024-04-03 19:29] LABS: Cholesterol 190 mg/dL (< 200); HDL Cholesterol 40 mg/dL (40-59)
[2024-04-04] VITALS (20 sets, daily range): BP systolic 116–138; BP diastolic 64–89; PULSE 68–99; RESP 14–18; TEMP 96.8–98.3; O2SAT 92–100
[2024-04-04 05:45] LABS: Basophils # (auto) 0 10 ^3/uL (0-0.2); Basophils % (auto) 0.9 % (0.0-2.0); Eosinophils # (auto) 0.1 10 ^3/uL (0-0.8); Eosinophils % (auto) 1.4 % (0.0-7.0); Hematocrit 35.5 % (36.0-46.0); Hemoglobin 11.6 g/dL (12.2-16.2); Lymphocytes # (auto) 1.2 10 ^3/uL (0.4-5.4); Lymphocytes % (auto) 23.6 % (10.0-50.0); Mean Corpuscular Hemoglobin 28.2 pg (28.0-32.0); Mean Corpuscular Hgb Conc. 32.8 g/dL (32.0-36.0); Mean Corpuscular Volume 86.2 fL (80.0-100.0); Monocytes # (auto) 0.4 10 ^3/uL (0-1.3); Monocytes % (auto) 7.8 % (0.0-12.0); Neutrophils # (auto) 3.3 10 ^3/uL (1.6-8.6); Neutrophils % (auto) 66.3 % (37.0-80.0); Nucleated Red Blood Cells % 0.1 %; Red Blood Cells 4.12 10^6/uL (4.0-5.20); Red Cell Distribution Width 14.1 % (11.8-14.3); White Blood Cell 4.9 10^3/uL (4.4-10.8)
[2024-04-04 05:57] LABS: Anion Gap 7 (5-15); Carbon Dioxide 28 mmol/L (20-30); Chloride 104 mmol/L (98-107); Sodium 139 mmol/L (136-145)
[2024-04-04 06:03] LABS: BUN/Creatinine Ratio 17.5 (10.0-20.0); Blood Urea Nitrogen 10 mg/dL (9-23); Glucose 153 mg/dL (74-106)
[2024-04-04] MEDS: HYDROcodone-ACET 10/325MG TAB PO PRN (09:04)
[2024-04-04 14:40] LABS: INR 1.06 (0.9-1.15); Prothrombin Time 11.2 sec (9.3-11.8)
[2024-04-05] VITALS (12 sets, daily range): BP systolic 125–142; BP diastolic 71–80; PULSE 51–92; RESP 16–20; TEMP 36.4; O2SAT 93–100
[2024-04-05 07:45] LABS: Basophils # (auto) 0 10 ^3/uL (0-0.2); Basophils % (auto) 0.5 % (0.0-2.0); Eosinophils # (auto) 0.1 10 ^3/uL (0-0.8); Eosinophils % (auto) 1.5 % (0.0-7.0); Hematocrit 37.9 % (36.0-46.0); Hemoglobin 12.1 g/dL (12.2-16.2); Lymphocytes # (auto) 1.4 10 ^3/uL (0.4-5.4); Lymphocytes % (auto) 26.3 % (10.0-50.0); Mean Corpuscular Hemoglobin 27.9 pg (28.0-32.0); Monocytes # (auto) 0.4 10 ^3/uL (0-1.3); Monocytes % (auto) 8.4 % (0.0-12.0); Neutrophils # (auto) 3.3 10 ^3/uL (1.6-8.6); Neutrophils % (auto) 63.3 % (37.0-80.0); Red Blood Cells 4.36 10^6/uL (4.0-5.20); Red Cell Distribution Width 14.6 % (11.8-14.3); White Blood Cell 5.3 10^3/uL (4.4-10.8)
[2024-04-05 08:08] LABS: Alanine Aminotransferase 11 U/L (7-40); Albumin 4.1 g/dL (3.2-4.8); Alkaline Phosphatase 75 U/L (46-116); Anion Gap 7 (5-15); Aspartate Aminotransferase 16 U/L (13-40); BUN/Creatinine Ratio 16.9 (10.0-20.0); Blood Urea Nitrogen 10 mg/dL (9-23); Calcium 10.4 mg/dL (8.5-10.1); Carbon Dioxide 29 mmol/L (20-30); Chloride 103 mmol/L (98-107); Glucose 148 mg/dL (74-106); Magnesium 1.8 mg/dL (1.6-2.6); Potassium 3.9 mmol/L (3.5-5.1); Sodium 139 mmol/L (136-145)
[2024-04-05 08:09] LABS: Bilirubin, Total 0.4 mg/dL (0.2-1.0); Total Protein 6.9 g/dL (5.7-8.2)
[2024-04-05 09:04] LABS: Hepatitis B Surface Antigen Negative (Negative)
[2024-04-05 09:25] LABS: Hepatitis C Antibody Negative (Negative)
[2024-04-05] MEDS: guaiFENesin-DM 100/10mg/5ml SYR PO PRN (09:27)
[2024-04-05] MEDS ORDERED: DEXT1SYP9 PO (11:36)
[2024-04-05] MEDS ORDERED: RESPMIS2 (13:52)
[2024-04-05] MEDS ORDERED: ALBUAER3 IN (13:52)
[2024-04-05 16:36] LABS: Urine Bacteria None Seen /hpf (None Seen)
[2024-04-05 16:52] LABS: Urine Blood Negative /uL (Negative); Urine Clarity Clear (Clear); Urine Color Light-Yellow (Yellow); Urine Protein, UAD Negative (Negative); Urine Specific Gravity 1.014 (1.001-1.035); Urine Urobilinogen 2 mg/dL (Negative); Urine WBC 4 /hpf (0 - 5)
== END 2024-04-05 16:25 | disposition home or self-care (01) | DRG 133 ==
LOC: ER 11:37 → TELE 18:19 → TELE-WESTW 23:52
PROVIDERS: ADMIT Internal Medicine; ATTEND Internal Medicine
DX: J96.01 Acute respiratory failure with hypoxia (principal); E11.9 Type 2 diabetes mellitus without complications; I10 Essential (primary) hypertension; I25.10 Atherosclerotic heart disease of native coronary artery without angina pectoris; R59.1 Generalized enlarged lymph nodes; Z20.822 Contact with and (suspected) exposure to COVID-19; E78.5 Hyperlipidemia, unspecified; I25.2 Old myocardial infarction; Z85.118 Personal history of other malignant neoplasm of bronchus and lung; Z85.42 Personal history of malignant neoplasm of other parts of uterus; Z88.0 Allergy status to penicillin; Z92.3 Personal history of irradiation; Z92.21 Personal history of antineoplastic chemotherapy; Z79.82 Long term (current) use of aspirin; Z83.3 Family history of diabetes mellitus; Z82.3 Family history of stroke; Z80.1 Family history of malignant neoplasm of trachea, bronchus and lung; Z87.891 Personal history of nicotine dependence; Z95.5 Presence of coronary angioplasty implant and graft; Z90.710 Acquired absence of both cervix and uterus; Z79.4 Long term (current) use of insulin
CPT/HCPCS: 36415; 71046; 71275; 80048; 80053; 80061; 81001; 82043; 82306; 82962; 83036; 83735; 83880; 84443; 84484; 85025; 85379; 85610; 85730; 86803; 87340; 87426; 87804; 93005; 94640; G0378; J1815; J1885

== ENCOUNTER 2024-04-11 13:23 | Emergency (ER) | payer MEDICAID ==
[~2024-04-11] VITALS: Ht 160 cm; Wt 65.4 kg
[~2024-04-11 13:23] MED LIST changes: +ALBUAER3 IN; -AZIT500T66 PO; -BLOO1KIT60 XX; +DEXT1SYP9 PO; +DICL1GEL59 TOP; +HYDR-4798 PO; -LOP2C PO; +OMEP-448 PO; +RESPMIS2
[2024-04-11 14:09] LABS: Basophils # (auto) 0 10 ^3/uL (0-0.2); Basophils % (auto) 0.3 % (0.0-2.0); Eosinophils # (auto) 0 10 ^3/uL (0-0.8); Eosinophils % (auto) 0.8 % (0.0-7.0); Hematocrit 39.1 % (36.0-46.0); Hemoglobin 12.5 g/dL (12.2-16.2); Lymphocytes # (auto) 0.4 10 ^3/uL (0.4-5.4); Lymphocytes % (auto) 7.9 % (10.0-50.0); Mean Corpuscular Hemoglobin 28.1 pg (28.0-32.0); Mean Corpuscular Hgb Conc. 31.9 g/dL (32.0-36.0); Mean Corpuscular Volume 88.2 fL (80.0-100.0); Monocytes # (auto) 0.3 10 ^3/uL (0-1.3); Monocytes % (auto) 4.7 % (0.0-12.0); Neutrophils # (auto) 4.6 10 ^3/uL (1.6-8.6); Neutrophils % (auto) 86.3 % (37.0-80.0); Nucleated Red Blood Cells % 0.1 %; Red Blood Cells 4.44 10^6/uL (4.0-5.20); White Blood Cell 5.4 10^3/uL (4.4-10.8)
[2024-04-11 14:30] LABS: Alanine Aminotransferase 10 U/L (7-40); Albumin 4.6 g/dL (3.2-4.8); Alkaline Phosphatase 100 U/L (46-116); Anion Gap 6 (5-15); Aspartate Aminotransferase 20 U/L (13-40); BUN/Creatinine Ratio 23.8 (10.0-20.0); Bilirubin, Total 0.3 mg/dL (0.2-1.0); Blood Urea Nitrogen 15 mg/dL (9-23); Calcium 10.4 mg/dL (8.5-10.1); Carbon Dioxide 28 mmol/L (20-30); Chloride 104 mmol/L (98-107); Glucose 182 mg/dL (74-106); Potassium 3.6 mmol/L (3.5-5.1); Sodium 138 mmol/L (136-145); Total Protein 7.5 g/dL (5.7-8.2)
[2024-04-11] MEDS: ALBUTEROL SULF 2.5 MG/0.5ML(0.5%) NEB SOLN NEB ONE (14:45)
[2024-04-11] MEDS: levoFLOXacin 500MG 100 ML IV ONE (15:40)
[2024-04-11 16:06] VITALS: TEMP 97.8
[2024-04-11] MEDS: HYDROcodone-ACET 10/325MG TAB PO ONE (16:23)
[2024-04-11] MEDS ORDERED: LEVO500T91 PO (17:53)
[2024-04-11 20:15] VITALS: BP 125/71; PULSE 90; RESP 18; O2SAT 94
== END 2024-04-11 20:34 | disposition home or self-care (01) ==
LOC: ER 13:23
DX: J18.9 Pneumonia, unspecified organism (principal); I10 Essential (primary) hypertension; E11.9 Type 2 diabetes mellitus without complications; E78.5 Hyperlipidemia, unspecified; I25.2 Old myocardial infarction; I25.10 Atherosclerotic heart disease of native coronary artery without angina pectoris; F15.90 Other stimulant use, unspecified, uncomplicated; Z85.9 Personal history of malignant neoplasm, unspecified; Z98.890 Other specified postprocedural states; Z87.891 Personal history of nicotine dependence
CPT/HCPCS: 36415; 71045; 80053; 84484; 85025; 93005; 94640; 96365; 99285; J1956